=== PATIENT | female | born 2000 | race Hispanic/Latino ===

== ENCOUNTER 2025-02-23 17:23 | Emergency (ER) | payer BC ==
[~2025-02-23] VITALS: Ht 149.9 cm; Wt 90.7 kg
--- NOTE | 2025-02-23 17:48 | ERN ---
ED Note History of Present Illness Stated Complaint: BACK PAIN Chief Complaint: Back Pain or Injury Time Seen by MD: 17:25 Time Seen by Midlevel: 17:26 Dictation: 24-year-old female presents to the emergency department due to reported having pain to the upper back that has been going off and on for the past 2 days. She states that it was not intense on day 1 but then it resolved. However, she states that it started again today. The patient states that it is present with certain particular movements. She reports having the pain primarily on the right side. There is no report of any trauma. Her level of discomfort right now is rated as an 8/10. She denies having any fever, chills, nausea or any particular rash. The patient states that she maintains a normal neurological function to bilateral extremities. Upon initial evaluation, the patient presents in no acute distress. Allergies: Coded Allergies: No Known Drug Allergies (Unverified Allergy, Unknown, 02/23/25) Emergency Care [facility] ATTENDANT: None Past Medical History Past Medical History: No Pertinent History Surgical History: None PSYCH History: no pertinent psych hx RN Note Reviewed/Agreed w/PFSH: Yes Review of System Dictation Back: Right upper back pain Initial Vital Sign VS Vital Signs Date Time Temp Pulse Resp B/P (MAP) Pulse Ox O2 Delivery O2 Flow Rate FiO2 02/23/25 17:25 99.5 110 18 168/98 98 Room Air 02/23/25 19:26 0 21 Physical Exam Dictation General: awake, alert, NAD Head/Face: Normocephalic, atraumatic Eyes: PERRL, EOMI ENT: Oral mucosa moist Neck: Trachea midline, supple Cardiovascular: RRR, no edema Respiratory: Symmetrical, non-labored Abdomen: Soft, non-tender, non-distended, no guarding. Skin: Warm, dry, good turgor, no rash MS/Extremity: Pulses equal, no cyanosis, neurovascular intact, FROM Back: Right paraspinal tenderness, Neuro: COAx4, GCS 15, steady gait, Psych: Normal behavior, mood, and affect normal ED Course ED Course Orders Procedure Category Date Status Time ,Urine Test LAB 02/23/25 Logged 17:36 Ketorolac 60mg/2ml PHA 02/23/25 Complete (Toradol 60mg/2ml) 18:00 Dexamethasone 4mg/Ml PHA 02/23/25 Complete 1ml Vial (Dexametha 18:00 Lidocaine (Lidoderm PHA 02/23/25 Complete Patch 5%) 18:00 Current Medications Medications (Trade) Dose Ordered Sig/Janes Route PRN Reason Start Time Stop Time Status Last Admin Dose Admin Dexamethasone Sodium Phosphate (dexaMETHasone 4MG/ML 1ML VIAL) 8 mg ONCE ONCE IM 02/23/25 18:00 02/23/25 18:01 DC 02/23/25 19:38 Ketorolac Tromethamine (toRADol 60MG/ 2ML) 60 mg ONCE ONCE IM 02/23/25 18:00 02/23/25 18:01 DC 02/23/25 19:38 Lidocaine (Lidoderm Patch 5%) 1 patch ONCE ONCE TP 02/23/25 18:00 02/23/25 18:01 DC 02/23/25 19:38 Vital Signs Date Time Temp Pulse Resp B/P (MAP) Pulse Ox O2 Delivery O2 Flow Rate FiO2 02/23/25 19:26 98.8 94 18 152/84 98 Room Air* 0 21 02/23/25 17:25 99.5 110 18 168/98 98 Room Air Medical Decision Making MDM MDM: Differential diagnosis: Acute back pain, back sprain, back strain. Rationale: Tests considered and ordered secondary to shared decision making include: Previous outside records reviewed: Old ER visits. Risk of complication and/or morbidity or mortality of patient management: None Medications-Per medication reconciliation Need for hospitalization: Patient does not meet criteria for hospitalization. Need for emergency major/minor surgery: No There are no social concerns with this patient. Prescription drug management Prescriptions will include symptomatic care Patient's prior external medical records from other ER visits were reviewed by me as indicated. Prior testing and results from previous visits were reviewed. Prior tests were taken into account with medical decision making and resource utilization, independent historian/historians were used to obtain complete medical history. I independently interpreted the test that were performed, results were reviewed by me and considered findings on radiology if ordered. Medical management and examination interpretation discussions were had by me with other qualified healthcare professionals as indicated for the patient's care. DX & DISP Disposition: Discharge Departure Impression: Primary Impression: Thoracic back sprain Condition: Stable Referrals: TESSA ORELLANA MD (PCP) Time of Disposition: 20:32 KRISTAL WILKERSON Feb 23, 2025 17:48
[2025-02-23] MEDS: LIDOCAINE 5% TOPICAL PATCH TP ONE (19:38)
[2025-02-23 20:33] VITALS: BP 140/76; PULSE 88; RESP 18; TEMP 98.8; O2SAT 98
== END 2025-02-23 20:34 | disposition home or self-care (01) ==
LOC: EDH 17:23
DX: S29.012A Strain of muscle and tendon of back wall of thorax, initial encounter (principal); X58.XXXA Exposure to other specified factors, initial encounter; Y93.89 Activity, other specified; Y92.89 Other specified places as the place of occurrence of the external cause; Y99.8 Other external cause status
CPT/HCPCS: 99284; 96372 ×2; J1100; J1885